=== PATIENT | female | born 1985 | race Caucasian/White ===

== ENCOUNTER 2023-09-30 18:40 | Emergency (ER) | payer OTHER, SELFPAY ==
[2023-09-30 18:45] VITALS: BP 158/100; PULSE 116; TEMP 36.8; O2SAT 100; BMI 29.9
--- NOTE | 2023-09-30 19:05 | CT_ITS ---
The [address] [address] Patient Name: CHRISSY WATKINS MRN: [id number] date: 1985 Sex: F Assigned Patient Location: ER Current Patient Location: ER Accession/Order Number: [id number] Exam Date: 09/30/2023 19:42 Report Date: 09/30/2023 19:55 At the request of: TIFFANY APONTE Procedure: CT head/brain wo con EXAM: CT head/brain wo con HISTORY: Headache COMPARISON: None. TECHNIQUE: Axial CT scans through the head were obtained without IV contrast administration. Dose reduction techniques were achieved by using: automated exposure control and/or adjustment of mA and /or kV according to patient size and/or use of iterative reconstruction technique. FINDINGS: There is no acute intracranial hemorrhage or abnormal extra-axial fluid collection. No mass effect or midline shift is seen. There is no evidence of large acute territorial infarction. There is no hydrocephalus. To the limit of CT, the posterior fossa appears unremarkable. The calvaria and extra cranial soft tissues are unremarkable. The visualized orbits show no abnormality. The visualized paranasal sinuses show no air-fluid level. Mastoid air cells are clear. CT/CT head/brain wo con IMPRESSION: No acute intracranial process. Electronically authenticated by: THONY COTE Date: 09/30/2023 19:55
--- NOTE | 2023-09-30 19:08 | ED_ITS ---
HPI HPI - General Adult General Chief complaint: Headache Stated complaint: Headache Eye problem Time Seen by Provider: 09/30/23 18:49 Source: patient Mode of arrival: walk-in Limitations: no limitations History of Present Illness HPI narrative: Patient is a 37-year-old female who presents to the emergency department for a 4-month history of intermittent headaches. Patient came to the emergency department tonight because she was seen by her eye doctor yesterday for floaters in the bilateral eyes, her eye doctor evaluated her and told her she may have questionable edema in the back of the eyes, she has a follow-up appointment in 1 month. She states that the eye doctor told her she may have increased intracranial pressure and should be seen immediately by a neurologist. She has an appointment in 1 week with local neurology but the eye doctor told her if the headache returned she should be seen for a CAT scan. She states she mention the symptoms to her primary care provider at her regular physical but no testing or medications were ordered. She describes the headache in the frontal scalp, occasionally the headache is in the occipital area. She denies visual loss, head trauma, fevers or vomiting. She has no neck pain, peripheral paresthesias. She is not concerned for . She states she took ibuprofen earlier today without improvement. She and her are very worried by what the eye doctor told them yesterday and are requesting a CT scan. Related Data Home Medications ?Medication ?Instructions ?Recorded ?Confirmed liraglutide 0.6 mg/0.1 mL (18 mg/3 0.6 mg subcut DAILY 09/30/23 09/30/23 mL) subcutaneous pen injector (Victoza 3-Bon) sertraline 50 mg tablet 50 mg PO DAILY 09/30/23 09/30/23 Previous Rx's ?Medication ?Instructions ?Recorded setjsfezie-dwebjojwwtkyl-jbberdpv 1 cap PO Q6H PRN headache #12 caps 09/30/23 50 mg-300 mg-40 mg capsule (Fioricet) ketorolac 10 mg tablet 10 mg PO TID PRN pain #10 tabs 09/30/23 ondansetron 4 mg disintegrating 4 mg PO Q6H PRN nausea and 09/30/23 tablet vomiting #12 tabs Allergies Allergy/AdvReac Type Severity Reaction Status Date / Time No Known Drug Allergies Allergy Verified 09/30/23 18:45 Opioid HPI Opioid Management Most Recent Opioid Data: No Data to Display Review of Systems ROS Constitutional Denies: fever or chills Ears, nose, mouth, and throat Denies: throat pain or nasal congestion Respiratory Denies: shortness of breath Gastrointestinal Reports: nausea; Denies: vomiting Musculoskeletal Denies: back pain or neck pain Integumentary/Breast Denies: rash Hematologic/Lymphatic Denies: easy bruising or easy bleeding Exam Narrative Exam Narrative: Gen.: Awake, alert, in no distress; sitting upright and speaking easily Head: Normocephalic, atraumatic ENT: Moist mucous membranes no nuchal rigidity or meningismus; bilateral TMs clear, clear speech Respiratory: No respiratory distress, lungs clear bilaterally Cardio: Regular rate and rhythm Extremities: Moves extremities equally Psych: Normal mood and affect Neuro: No focal neuro deficit Skin: Warm, dry, intact Constitutional Vital Signs, click to edit/add: Last Vital Signs Temp 98.3 F 09/30/23 18:45 Pulse 116 H 09/30/23 18:45 Resp 09/30/23 18:45 BP 158/100 H 09/30/23 18:45 Pulse Ox 100 09/30/23 18:45 O2 Del Method Room Air 09/30/23 18:45 Course Vital Signs Vital signs: Vital Signs Temperature 98.3 F 09/30/23 18:45 Pulse Rate 116 H 09/30/23 18:45 Respiratory Rate 20 09/30/23 18:45 Blood Pressure 158/100 H 09/30/23 18:45 Pulse Oximetry 100 09/30/23 18:45 Oxygen Delivery Method Room Air 09/30/23 18:45 Temperature 98.3 F 09/30/23 18:45 Pulse Rate 116 H 09/30/23 18:45 Respiratory Rate 09/30/23 18:45 Blood Pressure 158/100 H 09/30/23 18:45 Pulse Oximetry 100 09/30/23 18:45 Oxygen Delivery Method Room Air 09/30/23 18:45 Medical Decision Making MDM Narrative Medical decision making narrative: Patient has a benign exam in the emergency department. CT scan was obtained w hich is unremarkable, laboratory studies reviewed and noted including inflammatory markers which are also within normal limits. Patient has no focal neurodeficits on exam. She was given education and reassurance. Patient will be started on Toradol, Reglan, Fioricet for breakthrough pain for home. She was strongly encouraged to keep her neurology appointment next week as she likely does need an MRI in light of her headaches over the last 4 months, although she was counseled that if she can see her primary care provider early next week she may be able to get an order for an MRI and have MRI results available for her neurology appointment. Return to the emergency department if symptoms change or worsen SUPERVISED APC VISIT, PHYSICIAN ATTESTATION: Based on the medical record the care appears appropriate. ? Medical Records Medical records reviewed: Yes I reviewed the patient's medical records Lab Data Lab results reviewed: Yes I reviewed the patient's lab results Labs: Lab Results 09/30/23 Range/Units 19:30 WBC 6.5 (4.0-11.0) 10^3/uL RBC 3.84 L (4.20-5.40) 10^6/uL Hgb 11.4 L (12.0-16.0) g/dL Hct 34.5 L (36.0-48.0) % MCV 89.8 (81.0-99.0) fL MCH 29.7 (26.7-34.0) pg MCHC 33.0 (29.9-35.2) g/dL RDW 12.6 (11.0-15.0) % Plt Count 344 (150-450) 10^3/uL MPV 9.1 L (9.5-13.5) fL Neut % (Auto) 76.6 H (43.0-75.0) % Lymph % (Auto) 16.8 L (20.5-60.0) % [place] % (Auto) 4.7 (1.7-12.0) % Eos % (Auto) 1.1 (0.9-7.0) % Baso % (Auto) 0.6 (0.2-2.0) % Neut # (Auto) 5.0 (1.4-6.5) 10^3/uL Lymph # (Auto) 1.1 L (1.2-3.8) 10^3/uL [place] # (Auto) 0.3 (0.3-0.8) 10^3/uL Eos # (Auto) 0.1 (0.0-0.7) 10^3/uL Baso # (Auto) 0.0 (0.0-0.1) 10^3/uL Abs Immat Gran (auto) 0.01 (0.00-0.03) 10^3/uL Imm/Tot Granulo (auto) 0.2 (0.0-0.5) % ESR 18 (<=20) mm/hr Sodium 137 (136-145) mmol/L Potassium 3.7 (3.5-5.1) mmol/L Chloride 103 (98-107) mmol/L Carbon Dioxide 26.4 (21.0-32.0) mmol/L Anion Gap 11.3 BUN 10.0 (7.0-18.0) mg/dL Creatinine 0.91 (0.55-1.02) mg/dL Est GFR ( Amer) >60 (>=60) Est GFR (Non-Af Amer) >60 (>=60) BUN/Creatinine Ratio 11.0 Glucose 126 H (74-106) mg/dL Calcium 8.5 (8.5-10.1) mg/dL Total Bilirubin 0.3 (0.2-1.0) mg/dL AST 16 (15-37) U/L ALT 26 (14-59) U/L Alkaline Phosphatase 78 (46-116) U/L C-Reactive Protein <0.50 (<=0.50) mg/dL Total Protein 7.1 (6.4-8.2) g/dL Albumin 3.6 (3.4-5.0) g/dL Globulin 3.5 g/dL Albumin/Globulin Ratio 1.[address] scan - head: Attestation: I have reviewed the pertinent imaging results. Radiologist's impression: ITS Impressions Head CT 09/30/23 19:05 IMPRESSION: No acute intracranial process. Electronically authenticated by: THONY COTE Date: 09/30/2023 19:55 Discharge Plan Discharge Stand Alone Forms: Work/School Release, Portal Instructions Chief Complaint: Headache Clinical Impression: Headache Patient Disposition: Home, Self-Care Time of Disposition Decision: 20:30 Condition: Good Prescriptions / Home Meds: New ketorolac 10 mg tablet 10 mg PO TID PRN (Reason: pain) Qty: 10 0RF ondansetron 4 mg tablet,disintegrating 4 mg PO Q6H PRN (Reason: nausea and vomiting) Qty: 12 0RF sntnjdgfjq-xulpudscyvkxa-imqi [Fioricet] 50-300-40 mg capsule 1 cap PO Q6H PRN (Reason: headache) Qty: 12 0RF Rx Instructions: DX: R51.9 No Action sertraline 50 mg tablet 50 mg PO DAILY liraglutide [Victoza 3-Bon] 0.6 mg/0.1 mL (18 mg/3 mL) pen injector 0.6 mg SUBCUT DAILY Print Language: Grenadian Instructions: Acute Headache (ED) Additional Instructions: Please keep your appointment with neurology Referrals: CHRIS THAKUR [Primary Care Provider] - 1 week
[2023-09-30 19:38] LABS: Basophils Percent Auto 0.6 % (0.2-2.0); Eosinophils Absolute Auto 0.1 10^3/uL (0.0-0.7); Eosinophils Percent Auto 1.1 % (0.9-7.0); Hematocrit 34.5 % (36.0-48.0); Hemoglobin 11.4 g/dL (12.0-16.0); Immature Granulocytes Abs Auto 0.01 10^3/uL (0.00-0.03); Immature Granulocytes Pct Auto 0.2 % (0.0-0.5); Lymphocytes Absolute Auto 1.1 10^3/uL (1.2-3.8); Lymphocytes Percent Auto 16.8 % (20.5-60.0); Mean Corpuscular Hemoglobin 29.7 pg (26.7-34.0); Mean Corpuscular Volume 89.8 fL (81.0-99.0); Mean Platelet Volume 9.1 fL (9.5-13.5); Monocytes Absolute Auto 0.3 10^3/uL (0.3-0.8); Monocytes Percent Auto 4.7 % (1.7-12.0); Neutrophils Percent Auto 76.6 % (43.0-75.0); Platelet Count 344 10^3/uL (150-450); Red Blood Count 3.84 10^6/uL (4.20-5.40); Red Cell Distribution Width 12.6 % (11.0-15.0); White Blood Count 6.5 10^3/uL (4.0-11.0)
[2023-09-30 19:44] LABS: Erythrocyte Sedimentation Rate 18 mm/hr (<=20)
[2023-09-30] MEDS: METOCLOPRAMIDE HCL 10 MG/2 ML VIAL IVP (19:49)
[2023-09-30] MEDS: 0.9 % SODIUM CHLORIDE 1,000 ML 1000 ML IV (19:49)
[2023-09-30] MEDS: DIPHENHYDRAMINE HCL 50 MG/ML VIAL 25 MG IV (19:49)
[2023-09-30] MEDS: KETOROLAC TROMETHAMINE 30 MG/ML VIAL IVP (19:49)
[2023-09-30 19:52] LABS: Alanine Aminotransferase 26 U/L (14-59); Albumin Level 3.6 g/dL (3.4-5.0); Alkaline Phosphatase 78 U/L (46-116); Anion Gap 11.3; Aspartate Amino Transferase 16 U/L (15-37); Bilirubin Total 0.3 mg/dL (0.2-1.0); C Reactive Protein <0.50 mg/dL (<=0.50); Calcium 8.5 mg/dL (8.5-10.1); Carbon Dioxide 26.4 mmol/L (21.0-32.0); Chloride 103 mmol/L (98-107); Estimated GFR (African America >60 (>=60); Estimated GFR (Non-African Ame >60 (>=60); Globulin 3.5 g/dL; Glucose 126 mg/dL (74-106); Potassium 3.7 mmol/L (3.5-5.1); Sodium 137 mmol/L (136-145); Total Protein 7.1 g/dL (6.4-8.2)
[2023-09-30 20:45] VITALS: BP 128/81; PULSE 88; O2SAT 98
== END 2023-09-30 20:53 | disposition home or self-care (01) ==
PROVIDERS: Physician Assistant; Emergency Provider Student in an Organized Health Care Education/Training Program; PCP Nurse Practitioner Family
DX: R51.9 Headache, unspecified (principal)
CPT/HCPCS: 36415; 70450; 80053; 85025; 85652; 86140; 96374; 96375; 99285; J1200; J1885; J2765